=== PATIENT | female | born 1970 | race Caucasian/White ===

== ENCOUNTER 2018-10-15 10:03 | Observation (INO) ==
[~2018-10-15 10:03] MED LIST: LEXISCAN ONE
[2018-10-15] MEDS ORDERED: TORADOL IV ONE ×2 (10:14→15:04)
--- NOTE | 2018-10-15 11:03 | Diag Imaging Result Doc PS360 ---
EXAM: CHEST-1 VIEW - 10/15/2018 HISTORY: chest pain TECHNIQUE: Portable chest one view COMPARISON: 04/13/2018 FINDINGS: Heart size is normal. The lungs appear clear. There is no pleural effusion or pneumothorax identified. IMPRESSION: No evidence of acute disease. Electronically signed by Edgar Jimenez 10/15/2018 11:00 AM
[2018-10-15 11:09] LABS: BASO# 0.02 X1000 (0.0-0.2); BASO% 0.3 % (0.0-0.8); EOS# 0.05 X1000 (0.0-0.7); EOS% 0.6 % (0.0-10.0); HEMATOCRIT 43.1 % (37.0-47.0); HEMOGLOBIN 13.6 g/dL (12.0-16.0); IMM GRAN# 0.01 X1000 (0.0-0.04); IMM GRAN% 0.1 % (0.0-0.5); LYMPH# 2.09 X1000 (1.2-3.4); LYMPH% 26.7 % (20.5-51.1); MCH 30.8 PG (27-31); MCHC 31.6 g/dL (33-37); MCV 97.5 FL (81-99); MONO# 0.52 X1000 (0.11-0.59); MONO% 6.6 % (1.7-9.3); NEUT# 5.14 X1000 (1.4-6.5); NEUT% 65.7 % (42.2-75.2); PLT 179 X1000 (130-400); RBC 4.42 XMIL (4.2-5.4); RDW 13.5 % (11.5-14.5); WBC 7.83 X1000 (4.8-10.8)
[2018-10-15 11:11] LABS: AGAP 12; ALBUMIN 3.9 g/dL (3.5-5.0); ALKALINE PHOSPHATASE 91 U/L (32-104); BUN 19 mg/dL (8-22); CHLORIDE 106 mmol/L (98-107); COSMO 281; CREATININE 0.9 mg/dL (0.5-0.9); ESTIMATED GFR > 60; GLUCOSE 89 mg/dL (70-104); GOT 13 U/L (10-30); GPT 8 U/L (10-36); POTASSIUM 3.9 mmol/L (3.5-5.1); SODIUM 140 mmol/L (136-145); TCO2 22 mmol/L (25-35); TOTAL BILIRUBIN < 0.15 mg/dL (0.20-1.00); TOTAL PROTEIN 6.3 g/dL (6.3-8.3)
--- NOTE | 2018-10-15 11:18 | EKG Report ---
Test Performed on : 10/15/2018 10:03:29 AM Test Reason : chest pain Blood Pressure : / mmHG Vent. Rate : 075 BPM Atrial Rate : 075 BPM P-R Int : 132 ms QRS Dur : 092 ms QT Int : 408 ms P-R-T Axes : 055 058 051 degrees QTc Int : 455 ms Normal sinus rhythm. Possible Left atrial enlargement Borderline ECG When compared with ECG of 13-APR-2018 10:25, Nonspecific T wave abnormality no longer evident in Inferior leads Nonspecific T wave abnormality no longer evident in Lateral leads QT has shortened Unconfirmed Result
[2018-10-15] MEDS ORDERED: NICODERM PATCH TD ONE (11:28)
--- NOTE | 2018-10-15 12:16 | PROVIDER DOCUMENTATION ---
This chart was entered by Casandra Bar Scribe, acting as scribe for Ti Blunt MD. HPI-Chest Pain - General Chief Complaint: Chest Pain Stated Complaint: CHEST PAIN Time Seen by Provider: 10/15/18 10:04 Source: patient, EMS (first response) Allergies/Adverse Reactions: Patient Allergies Allergy/AdvReac Type Severity Reaction Status Date / Time cephalexin monohydrate * Allergy Mild HIVES Verified 04/09/18 08:34 [From Keflex] Home Medications: Home Medication List Medication Instructions Recorded Confirmed Last Taken Type Topiramate [Topamax] 100 mg PO BID #30 tablet 06/15/16 10/15/18 04/10/18 05:30 Rx Venlafaxine E.r. [Effexor Xr] 150 mg PO QAM #30 capsule 06/15/16 10/15/18 04/10/18 05:30 Rx Aspirin 81 mg PO DAILY 04/09/18 10/15/18 04/07/18 History Cholecalciferol (Vitamin D3) 1,000 unit PO DAILY 04/09/18 10/15/18 03/13/18 05:30 History [Vitamin D3] Cyanocobalamin (Vitamin B-12) 1,000 mcg IM DIRECTED 04/09/18 10/15/18 Unknown History [Cyanocobalamin Injection] Estradiol [Estrace] 1 mg PO DAILY 04/09/18 10/15/18 04/09/18 21:00 History Ketorolac [Toradol] 10 mg PO Q6H PRN PRN 04/09/18 10/15/18 Unknown History Tizanidine [Zanaflex] 2 mg PO TID 04/09/18 10/15/18 04/09/18 21:00 History Trazodone [Desyrel] 2 tab PO QHS 04/09/18 10/15/18 04/09/18 21:00 History Cyclobenzaprine [Flexeril] 1 tab PO DIRECTED 10/15/18 10/15/18 Unknown History Olanzapine [Zyprexa] 10 mg PO QHS 10/15/18 10/15/18 Unknown History - History of Present Illness-CP Nature of Presenting Problem: 48 yowf presents to the ed via ems with c/o reproducible chest pain with palpation. pt sts it is substernal on exam with left arm tingling. pt is in no distress and is nontoxic in appearance Location: reports: substernal Chest Pain Radiation: reports: arms (left arm is tingling mild) Quality of Pain: reports: pressure Severity in ED: mild Onset/Duration: just prior to arrival Timing: still present Context/Activities at Onset: reports: light activity Modifying Factors: worse with: palpation (reproducible pain) Associated Symptoms: denies: abdominal pain, back pain, diaphoresis, dizziness, nausea, shortness of breath, vomiting Nitro Today/Relief: no nitro taken today Aspirin Treatment Today: 325 mg x 1, provided by EMS Prior Chest Pain/Cardiac Workup: reports: no prior chest pain Similar Symptoms Previously?: No Recently Seen Here or By Another Healthcare Provider: No Review of Systems - Adult - REVIEW OF SYSTEMS - ADULT Constitutional: denies: chills, fever Eyes: reports: no symptoms reported Ears, Nose, Mouth & Throat: reports: no symptoms reported Cardiovascular: reports: see HPI, chest pain (chest wall). denies: palpitations, syncope Respiratory: denies: cough, shortness of breath, wheezing Gastrointestinal: denies: abdominal pain, diarrhea, nausea, vomiting Genitourinary: reports: no symptoms reported Musculoskeletal: denies: back pain, neck pain Integumentary: reports: no symptoms reported Neurological: reports: see HPI, paresthesia (left arm). denies: dizziness/verti go, headache/migraines, syncope, tremors Psychiatric: reports: no symptoms reported Endocrine: reports: no symptoms reported Hematologic/Lymphatic: reports: no symptoms reported Allergic/Immunologic: reports: no symptoms reported All Other Systems: Reviewed and Negative Past History - Adult - PAST MEDICAL HISTORY-ADULT Review of Records: reports: Old Records Reviewed, Nursing Assessment Review, Medications Reviewed, Social history reviewed & non-contributory. Major Childhood Illnesses: reports: denies history Cardiovascular: reports: denies history Respiratory: reports: denies history Gastrointestinal: reports: denies history Obstetrical/Gynecological: reports: denies history Genitourinary: reports: kidney stones Musculoskeletal: reports: denies history Hand Dominance: Right Handed Neurological: reports: headaches/migraines Psychiatric: reports: depression Endocrine/Immune: reports: denies history Other Conditions: reports: denies history - PRIOR SURGERIES/PROCEDURES Surgical/Procedure History: reports: cholecystectomy, hysterectomy - IMMUNIZATION STATUS Childhood Immunizations: See Nurse Assessment Flu Vaccine: See Nurse Assessment - FAMILY HISTORY Family History: reviewed, not pertinent - SOCIAL HISTORY Smoking: cigarettes, greater than 1 pack/day Provider spent 3-5 mins advising pt. on dangers of tobacco.: Discussed manners to quit use, and f/u contacts for add'l counseling. Substance Use: alcohol Alcohol Use Frequency: occasionally Number of drinks per typical drinking period:: 3-4 drinks Living Situation: family Physical Exam-General - PHYSICAL EXAM-ADULT Initial Vital Signs Reviewed: Yes - CONSTITUTIONAL General Appearance: appears well, alert, no apparent distress (pt is nontoxic in appearance) - EYES Eyes: PERRL/EOMI, pink conjunctivae - HEAD, EARS, NOSE, MOUTH & THROAT HENMT: moist mucous membranes, normal ENT inspection - NECK Neck: non-tender, full range of motion, supple, normal inspection - RESPIRATORY Respiratory: chest non-tender, lungs clear, normal breath sounds - CARDIOVASCULAR Cardiovascular: normal peripheral pulses, regular rate, rhythm - CHEST (BREASTS) Chest/Breast: tenderness (palpation makes pain reproducible) - GASTROINTESTINAL (ABDOMEN) Abdominal Exam: normal bowel sounds, non tender, soft - GENITOURINARY Female Genitalia/Pelvic Exam: deferred Rectal Exam: deferred Hemoccult Exam: deferred - LYMPHATIC Lymphatic: no adenopathy - MUSCULOSKELETAL Back Exam: normal inspection, no CVA tenderness, no vertebral tenderness Extremity: normal range of motion, non-tender, normal gait, normal inspection - SKIN Integumentary: normal color, normal turgor, warm/dry - NEUROLOGIC Neurologic: grossly normal - PSYCHIATRIC Psych/Mental Status: normal mood/affect, normal thought content, normal thought process, oriented x 3 - HEART Score HEART Score: History: Slightly Suspicious HEART Score: ECG: Non-Specific Repolarization Disturbance/LBBB/PM HEART Score: Age: 45-65 Years HEART Score: Risk Factors for Atherosclerotic Disease: 1 or 2 Risk Factors HEART Score: Troponin: < or = Normal Limit Total HEART Score:: 3 Progress - PLAN OF CARE/RESULTS Progress/Plan/Lab Results: Vital Signs - 8 hr 10/15/18 10:03 Pulse Rate 78 Respiratory Rate 20 Blood Pressure 136/66 O2 Sat by Pulse Oximetry 98 Laboratory Results - last 24 hr 10/15/18 10/15/18 10/15/18 10:20 10:20 10:20 WBC Cancelled RBC Cancelled Hgb Cancelled Hct Cancelled MCV Cancelled MCH Cancelled MCHC Cancelled RDW Std Deviation Cancelled Plt Count Cancelled MPV Cancelled Immature Gran % (Auto) Cancelled Neut % (Auto) Cancelled Lymph % (Auto) Cancelled [place] % (Auto) Cancelled Eos % (Auto) Cancelled Baso % (Auto) Cancelled Immature Gran # (Auto) Cancelled Neut # (Auto) Cancelled Lymph # (Auto) Cancelled [place] # (Auto) Cancelled Eos # (Auto) Cancelled Baso # (Auto) Cancelled Corrected WBC (Man) Cancelled D-Dimer, Quantitative 0.36 Sodium Potassium Chloride Carbon Dioxide Anion Gap BUN Creatinine Estimated GFR/1.73 m2 BUN/Creatinine Ratio Glucose Calculated Osmolality Calcium Total Bilirubin AST ALT Alkaline Phosphatase Troponin T < 0.010 Fgn-N-Lfwagzgmztg Pept Total Protein Albumin Globulin Albumin/Globulin Ratio 10/15/18 10/15/18 10/15/18 10:20 10:20 11:05 WBC 7.83 RBC 4.42 Hgb 13.6 Hct 43.1 MCV 97.5 MCH 30.8 MCHC 31.6 L RDW Std Deviation 13.5 Plt Count 179 MPV 11.0 H Immature Gran % (Auto) 0.1 Neut % (Auto) 65.7 Lymph % (Auto) 26.7 [place] % (Auto) 6.6 Eos % (Auto) 0.6 Baso % (Auto) 0.3 Immature Gran # (Auto) 0.01 Neut # (Auto) 5.14 Lymph # (Auto) 2.09 [place] # (Auto) 0.52 Eos # (Auto) 0.05 Baso # (Auto) 0.02 Corrected WBC (Man) D-Dimer, Quantitative Sodium 140 Potassium 3.9 Chloride 106 Carbon Dioxide 22 L Anion Gap 12 BUN 19 Creatinine 0.9 Estimated GFR/1.73 m2 > 60 BUN/Creatinine Ratio 21 Glucose 89 Calculated Osmolality 281 Calcium 8.0 L Total Bilirubin < 0.15 L AST 13 ALT 8 L Alkaline Phosphatase 91 Troponin T Pvx-L-Bgugliutwwu Pept 130 Total Protein 6.3 Albumin 3.9 Globulin 2.0 Albumin/Globulin Ratio 2.0 Orders Category Date Time Status CHEST-1 VIEW [RAD] Stat Exams 10/15/18 10:13 Completed CBC WITH ELECTRONIC DIFF [HEME] Stat Lab 10/15/18 11:05 Completed COMPREHENSIVE METABOLIC PANEL [CHEM] Stat Lab 10/15/18 10:20 Completed D-DIMER [COAG] Stat Lab 10/15/18 10:20 Completed PRO B-NATRIURETIC PEPTIDE Stat Lab 10/15/18 10:20 Completed TROPONIN T Stat Lab 10/15/18 10:20 Completed Ketorolac [Toradol] Med 10/15/18 10:14 Discontinued 15 mg IV NOW ONE Nicotine Patch [Nicoderm Patch] Med 10/15/18 11:28 Discontinued 21 mg TD NOW ONE EKG [EKG] Stat Ther 10/15/18 10:15 Draft Result Diagrams: 10/15/18 11:05 10/15/18 10:20 - REASSESSMENT Reassessment #1 Time Reassessed: 11:13 Status: improving Reassessment #2 Time Reassessed: 13:18 Status: improving - EKG 1 Time of EKG reading by physician:: 10:03 EKG Read and Signed by:: Ti Blunt EKG Interpretation (*Must complete 3 of following elements*): Normal (borderline) Rate: 75 Rhythm: nsr [place]: normal QRS: normal SD Interval: normal ST Wave: normal Comments: possible left atrial enlargement 2 Time of EKG reading by physician:: 13:13 EKG Read and Signed by:: Ti Blunt EKG Interpretation (*Must complete 3 of following elements*): Normal Rate: 76 Rhythm: nsr [place]: normal QRS: normal SD Interval: normal ST Wave: normal Prior EKG Comparison: changes noted - XRAY 1 XRAY: Bilateral XRAY Study: Chest Impression: See EMR Report (EXAM: CHEST-1 VIEW - 10/15/2018 HISTORY: chest pain TECHNIQUE: Portable chest one view COMPARISON: 04/13/2018 FINDINGS: Heart size is normal. The lungs appear clear. There is no pleural effusion or pneumothorax identified. IMPRESSION: No evidence of acute disease. Electronically signed by Edgar Jimenez 10/15/2018 11:00 AM 10/15/18 1100 Interpreting Physician: Edgar Jimenez MD Dictated Date/Time: 10/15/18 1050 cc: Ti Blunt MD; None,PCP) - CONSULTS/PCP/HOSPITALIST Notification #1 *Consult/PCP/Hospitalist*: hospitalist dr briscoe Time Discussed: 12:14 Consult Disposition: Admit Departure - Departure Date of Disposition Decision: 10/15/18 Time of Disposition Decision: 12:16 DIAGNOSIS: Tobacco use disorder, Chest pain Disposition: ADMITTED INPATIENT 09 Certified Medical Emergency: Emergent Condition: Fair Referrals and Follow-Ups: None,PCP [Primary Care Provider] - - Critical Care Note This patient required my direct & personal management of CC.: No Attestation - Physician/ TAQUERIA Attestation Patient care was provided by Advanced Practice Provider:: No The physician spent face to face time with patient:: Yes Advanced Practice Provider documentation review:: Supervising physician onsite and consulted in the evaluation and care of this patient. The physician did have a face to face encounter with the patient. This chart was documented by the indicated scribe, (Casandra Bar Scribe) and accurately reflects the services I performed and decisions made by me, Ti Blunt MD, as attested by the provider's signature.
[2018-10-15] MEDS ORDERED: NITROGLYCERIN SL PRN (16:13)
[2018-10-15] MEDS ORDERED: ZOFRAN IV PRN (16:13)
--- NOTE | 2018-10-15 16:31 | EKG Report ---
Test Performed on : 10/15/2018 1:13:17 PM Test Reason : CP Blood Pressure : / mmHG Vent. Rate : 076 BPM Atrial Rate : 076 BPM P-R Int : 158 ms QRS Dur : 084 ms QT Int : 426 ms P-R-T Axes : 056 046 055 degrees QTc Int : 479 ms Normal sinus rhythm. Normal ECG When compared with ECG of 15-OCT-2018 10:03, (Unconfirmed) No significant change was found Unconfirmed Result
[2018-10-15] MEDS ORDERED: LOVENOX SUBQ SCH (17:00)
[2018-10-15 17:26] LABS: AGAP 10; BUN 19 mg/dL (8-22); CALCIUM 7.8 mg/dL (8.8-10.2); CHLORIDE 110 mmol/L (98-107); CK TOTAL 122 U/L (24-173); COSMO 284; CREATININE 0.9 mg/dL (0.5-0.9); ESTIMATED GFR > 60; GLUCOSE 140 mg/dL (70-104); POTASSIUM 3.9 mmol/L (3.5-5.1); SODIUM 140 mmol/L (136-145); TCO2 21 mmol/L (25-35)
[2018-10-15] MEDS: ZANAFLEX PO SCH (18:22)
[2018-10-15] MEDS: TOPAMAX PO SCH (20:11)
[2018-10-15] MEDS: TYLENOL PO PRN (20:36)
[2018-10-15] MEDS ORDERED: DESYREL PO SCH (21:00)
[2018-10-15] MEDS ORDERED: ZYPREXA PO SCH (21:00)
--- NOTE | 2018-10-15 21:16 | HISTORY AND PHYSICAL ---
PRIMARY CARE PROVIDER: None. CHIEF COMPLAINT: Chest pain. HISTORY OF PRESENT ILLNESS: Ms. Ochoa is a 48-year-old female who carries a past medical history of pericarditis, kidney stones, migraines, 2 admissions to [facility] for depressive disorder, vitamin D deficiency. She reported to the ED complaining of chest pain with palpitations that was substernal with left arm tingling. Initial workup in the ED shows negative troponins. EKG just shows a normal sinus rhythm with possible left atrial enlargement at 75 beats per minute. Chest x-ray shows no evidence of acute disease. We will admit her in observation status for chest pain rule-out. PAST MEDICAL HISTORY: 1. Major depressive disorder. 2. Migraine headaches. 3. Kidney stones. 4. Vitamin D deficiency. PAST SURGICAL HISTORY: Cholecystectomy, hysterectomy. FAMILY HISTORY: Mother and father both with diabetes. ALLERGIES: Keflex, causes hives. HOME MEDICATIONS: 1. Aspirin. 2. Vitamin D3. 3. Vitamin B12. 4. Flexeril. 5. Estrace. 6. Toradol. 7. Zyprexa. 8. Zanaflex. 9. Topamax. 10. Desyrel. 11. Effexor XR. PHYSICAL EXAMINATION: VITAL SIGNS: Temperature not taken, heart rate 78, respirations 20, blood pressure 136/66, O2 is 98% on room air. GENERAL: Ms. Ochoa is a 48-year-old female who is lying in the bed in no acute distress. HEENT: Atraumatic, normocephalic. PERRL. NECK: Supple. Trachea midline. CARDIOVASCULAR: S1, S2 appreciated. No murmurs, gallops or rubs noted. RESPIRATORY: Lung sounds clear bilaterally. GASTROINTESTINAL: Soft, nontender. Positive bowel sounds. EXTREMITIES: Lower extremities negative for edema. NEUROLOGIC: No focal deficits noted. DIAGNOSTIC DATA: Chest x-ray: No acute process. LABORATORY DATA: Essentially unremarkable. CBC: White count 7, hemoglobin and hematocrit 13 and 43, platelet count 179,000. Sodium 140, potassium 3.9, BUN 19, creatinine 0.9, blood glucose is 89. Two sets of troponins have been negative. ASSESSMENT AND PLAN: 1. Chest pain rule-out. The patient does not have any known coronary artery disease; however, she does have a history of pericarditis, so we will go ahead and rule that out with an echocardiogram. We will continue with full-dose aspirin, serial cardiac enzymes. We will make her n.p.o. after midnight. Stress test in the a.m. 2. Migraines. Aware. 3. Vitamin D deficiency. Aware. 4. Kidney stones. Aware. 5. History of depression. Aware. 6. Further recommendations to follow physician evaluation and laboratory and diagnostic data. Dictated by ESTELLA Metz for Blue Rapp MD cc: Blue Rapp MD
--- NOTE | 2018-10-16 00:29 | ECHO REPORT ---
ORDER DATE: 10/15/2018 MEASUREMENTS: Septal thickness 1.0, left ventricular internal diameter in diastole 5.1, posterior wall thickness 1.0, left ventricular internal diameter in systole 3.1. Left atrium 3.1, aortic root 3.5. SUMMARY: 1. Adequate quality study. 2. Aortic valve is trileaflet and opens normally on 2-dimensional images. Peak gradient across the aortic valve is less than 10 mmHg. Mitral, tricuspid, and pulmonic valves are without evidence of structural abnormality with very mild mitral regurgitation and very mild tricuspid regurgitation. The estimated systolic PA pressure by Doppler is 30 to 35 mmHg. Aortic root is normal size. 3. Normal left ventricular dimensions demonstrated. Estimated left ejection fraction appears to be at least 70%. No regional wall motion abnormalities are evident. Left atrium, right atrium, right ventricle are normal in size with preserved right ventricular systolic function. 4. No pericardial effusion. 5. Appearance of inferior vena cava suggests normal central venous pressure. CONCLUSIONS: 1. Very mild mitral regurgitation. 2. Very mild tricuspid regurgitation. 3. Normal left ventricular systolic function without wall motion abnormality evident. cc: MD Blue Benson MD
--- NOTE | 2018-10-16 04:58 | HISTORY AND PHYSICAL ---
ADDENDUM: Patient seen and examined by myself. Full note dictated and discussed with nurse practitioner. Patient presented to the hospital with chest pain. This appears to be more noncardiac in nature. However, given her risk factors, we are going to admit her to the hospital rule out [place] and will follow. cc: Blue Rapp MD
[2018-10-16 06:56] LABS: CHOLESTEROL 160 mg/dL (0-200); HDL 49 mg/dL (45-65); LDL 82 mg/dL; TRIGLYCERIDES 144 mg/dL (35-135); VLDL 29 mg/dL
[2018-10-16] MEDS ORDERED: PRILOSEC PO SCH (07:00)
--- NOTE | 2018-10-16 07:16 | Diag Imaging Result Doc PS360 ---
EXAM: CHEST-PORTABLE - 10/16/2018 HISTORY: Chest Pain TECHNIQUE: Portable chest COMPARISON: 10/15/2018 FINDINGS: Heart size is normal. The lungs appear clear. There is no pleural effusion or pneumothorax identified. IMPRESSION: No evidence of acute disease. Electronically signed by Edgar Jimenez 10/16/2018 7:13 AM
[2018-10-16] MEDS: ZANAFLEX PO SCH ×3 (08:49→16:59)
[2018-10-16] MEDS: TOPAMAX PO SCH (08:49)
[2018-10-16] MEDS: TYLENOL PO PRN (08:58)
[2018-10-16] MEDS ORDERED: ASPIRIN PO SCH (09:00)
[2018-10-16] MEDS ORDERED: EFFEXOR XR PO SCH (09:00)
[2018-10-16] MEDS ORDERED: ESTRACE PO SCH (09:00)
[2018-10-16 15:10] VITALS: BP 148/70
--- NOTE | 2018-10-16 16:52 | Diag Imaging Result Document ---
PROCEDURE NAME: MYOCARDIAL PERF SCAN, STR/REST - 10/15/2018 STUDY: Rest/stress Lexiscan myocardial perfusion study. INDICATION: Chest pain. DESCRIPTION: The patient came into the nuclear lab and received a rest injection of technetium 99 sestamibi 12.4 mCi. Multiple tomographic views of the cardiac structures were obtained at rest. Subsequently the patient underwent infusion of Lexiscan 0.4 mg and at peak infusion was injected with technetium 99 sestamibi 33.2 mCi. Multiple tomographic views of the cardiac structures were obtained following completion of the protocol. SUMMARY OF THE ELECTROCARDIOGRAPHIC PORTION OF THE STUDY: The resting ECG shows sinus rhythm, rate 55 beats per minute. Resting blood pressure 152/79. During the infusion, the heart rate increased to 92 beats per minute. Blood pressure went down to 144/74. The ECG showed no significant changes. There was some first degree AV block noted during the infusion. No other significant abnormality is noted. The patient reported some chest heaviness of moderate severity that resolved rapidly. No abnormalities were identified during the recovery phase. In summary, electrocardiographic response to infusion of Lexiscan is normal. SUMMARY OF THE MYOCARDIAL PERFUSION PORTION OF THE STUDY: Poststress tomographic views of the left ventricle showed normal homogeneous distribution of radiotracer throughout the entire left ventricular myocardium. There was no evidence of any postexercise defect. Rest images showed normal perfusion. The polar plots revealed the same. There was no evidence of any inducible ischemia nor myocardial scar. Gated SPECT showed normal left ventricular systolic function, ejection fraction was estimated at 79% with normal ventricular volumes and no wall motion abnormality. The lung/heart ratio is normal. The TID is also normal. SUMMARY: This study shows: 1. Normal electrocardiographic response to infusion of Lexiscan. 2. Normal poststress myocardial perfusion scan. There is no scintigraphic evidence of pharmacologically induced myocardial ischemia. 3. Normal left ventricular systolic function. Ejection fraction of 79% with normal ventricular volumes and no wall motion abnormality. This study represents a low risk for ischemic events. cc: Eric Reed MD
[2018-10-16] MEDS ORDERED: DESYREL PO SCH (21:00)
--- NOTE | 2018-10-17 13:53 | DISCHARGE SUMMARY ---
ADMISSION DATE: 10/15/2018 DISCHARGE DATE: 10/16/2018 CONSULTATIONS: None. PROCEDURES: Echocardiogram: 1. Very mild mitral regurgitation. 2. Very mild tricuspid regurgitation, normal systolic function. Pending stress test. HOSPITAL COURSE: Briefly, Ms. Ochoa is a 48-year-old female with a past medical history of pericarditis, kidney stones, migraines, 2 admissions to [facility] for depressive disorder. She reported to the ED complaining of chest pains and palpitations that was substernal with left arm tingling. Four sets of cardiac enzymes have been negative. She has had no acute events overnight. She will be setup for a stress test and if that is normal she will be discharged home this afternoon. DISCHARGE MEDICATIONS: 1. Desyrel 2 tablets p.o. at bedtime. 2. Zyprexa 10 mg p.o. at bedtime. 3. Aspirin 81 mg p.o. daily. 4. Vitamin B12 1000 mcg IM as directed. 5. Estrace 1 mg p.o. daily. 6. Flexeril 10 mg tablet p.o. as directed. 7. Toradol 10 mg p.o. q.6 hours p.r.n. 8. Vitamin D3 1000 units p.o. daily. 9. Zanaflex 2 mg p.o. t.i.d. 10.Effexor XR 150 mg p.o. q.a.m. 11.Topamax 100 mg p.o. b.i.d. FOLLOWUP: Ms. Ochoa's discharge is pending her perfusion scan. If it is normal, she will be discharged home to continue to take her home medications and follow up with her primary care physician. She can return to the ED or call 911 for any worsening symptoms. ADDENDUM: Stress test normal patient discharged home. Dictated by ESTELLA Metz for Blue Rapp MD cc: Blue Rapp MD [facility]
--- NOTE | 2018-10-17 14:49 | DISCHARGE SUMMARY ---
ADMISSION DATE: 10/15/2018 DISCHARGE DATE: 10/16/2018 ADDENDUM: Patient seen and examined by myself. Full note dictated and discussed with nurse practitioner. On discharge, patient is awake, alert, currently in no distress. Chest pain is resolved. She did undergo a stress test that was reported as negative. Therefore, we will discharge her home. cc: Blue Rapp MD
== END 2018-10-16 17:41 | disposition home or self-care (01) ==
LOC: P.ED 10:03 → SUATTDRO 15:58 → INTOOBSV 15:58 → P.MEDSURG 15:58
PROVIDERS: ADMIT Family Medicine; ATTEND Family Medicine